=== PATIENT | male | born 1965 | race Caucasian/White ===

== ENCOUNTER 2021-07-08 18:45 | Emergency (ER) | payer OTHER ==
[2021-07-08 18:59] VITALS: BP 101/62; PULSE 75; TEMP 97.8; BMI 27.2
[2021-07-08 21:38] LABS: BASO % 1.4 % (0-2.0); EOS % 3.6 % (0-4.5); HEMATOCRIT 34.2 % (35.4-49); HEMOGLOBIN 11.4 GM/dL (11.7-16.9); LYMPH % 19.1 % (8-40); MCH 29.4 pg (25.7-33.7); MCHC 33.4 g/dl (32.0-35.9); MEAN PLT VOLUME 7.8 fl (7.5-11.1); MONO % 11.4 % (3.8-10.2); NEUT % 64.5 % (42.8-82.8); PLATELET COUNT 262 10^3/uL (134-434); RBC 3.89 M/mm3 (4.00-5.60); RDW 14.6 % (11.9-15.9); WHITE BLOOD COUNT 5.1 K/mm3 (4.0-10.0)
[2021-07-08 21:57] LABS: ALBUMIN 2.8 g/dl (3.4-5.0); BLOOD UREA NITROGEN 11.6 mg/dL (7-18); CALCIUM 8.1 mg/dL (8.5-10.1)
[2021-07-08 21:59] LABS: MAGNESIUM 2.4 mg/dL (1.8-2.4)
[2021-07-08 22:01] LABS: CREATININE 0.8 mg/dL (0.55-1.3)
[2021-07-08 22:02] LABS: BILIRUBIN,TOTAL 0.3 mg/dL (0.2-1); TOT PROT 6.3 g/dl (6.4-8.2)
[2021-07-08 22:07] LABS: N-TERMINAL BNP 130.2 pg/ml (5-125)
[2021-07-08] MEDS ORDERED: CEPHALEXIN MONOHYDRATE 500 MG CAPSULE (UD) PO ONE (22:19)
[2021-07-08] MEDS ORDERED: SULFAMETHOXAZOLE/TRIMETHOPRIM 800MG/160MG D.S. TABLET PO ONE (22:19)
== END 2021-07-08 23:01 | disposition home or self-care (01) ==
LOC: JER 18:45
DX: L03.115 Cellulitis of right lower limb (principal); I87.2 Venous insufficiency (chronic) (peripheral)
CPT/HCPCS: 36415; 80053; 83735; 83880; 85025; 93970-TC; 99284-25